=== PATIENT | male | born 1960 | race Caucasian/White ===

== ENCOUNTER 2023-10-12 15:30 | Emergency (ER) | payer OTHER, SELFPAY ==
[2023-10-12] MEDS ORDERED: cloNIDine 0.1 MG TAB ONE (15:38)
[2023-10-12] MEDS ORDERED: fentaNYL 50 mcg/mL 1 mL Vial ONE (15:38)
[2023-10-12] MEDS ORDERED: Boostrix 0.5 ML (Tdap) VIAL (>/=7 yrs of age) ONE (15:39)
[2023-10-12] MEDS ORDERED: Bacitracin 1 PK ONE (15:58)
[2023-10-12] MEDS ORDERED: CEFAZOLIN 2 GM VIAL ONE (17:26)
[2023-10-12] MEDS ORDERED: Sodium Chloride 0.9% 100 ML ONE (17:27)
== END 2023-10-12 17:47 | disposition home or self-care (01) ==
LOC: ERS 15:30
DX: S91.342A Puncture wound with foreign body, left foot, initial encounter (principal); I10 Essential (primary) hypertension; F17.220 Nicotine dependence, chewing tobacco, uncomplicated; Z23 Encounter for immunization; Z79.899 Other long term (current) drug therapy; W29.4XXA Contact with nail gun, initial encounter
CPT/HCPCS: 10120; 90471; 90715; 96365; 96372; J3010; J3490